=== PATIENT | female | born 1965 | race Caucasian/White ===

== ENCOUNTER → 2020-11-02 | Outpatient (CLI) | payer BC | LOC: M LABSMTC 10:46 | PROVIDERS: ATTEND Family Medicine | DX: Z11.52 Encounter for screening for COVID-19 (principal) ==

== ENCOUNTER → 2025-02-26 | Outpatient (REF) | payer OTHER, BC ==
[2025-02-26 18:24] LABS: PLATELET COUNT, AUTOMATED 323 10^3/uL (150-450)
== END ==
LOC: M LABDRWCV 17:49
PROVIDERS: ATTEND Family Medicine
DX: D72.819 Decreased white blood cell count, unspecified (principal)

== ENCOUNTER → 2025-03-19 | Outpatient (REF) | payer OTHER, BC ==
[2025-03-19 18:31] LABS: CHOLESTEROL LEVEL 255.0 MG/DL (<200); CHOLESTEROL RISK RATIO 3.08 (<5); LDL CHOLESTEROL 150.4 MG/DL (<100); NON-HDL-C 172.4 MG/DL; TRIGLYCERIDES LEVEL 110.0 MG/DL (<150)
== END ==
LOC: M LABDRWCV 17:24
PROVIDERS: ATTEND Family Medicine
DX: E03.9 Hypothyroidism, unspecified (principal)

== ENCOUNTER → 2025-07-09 | Outpatient (REF) | payer BC ==
[2025-07-09 18:13] LABS: ALT/SGPT 37 U/L (7.0-40); AST/SGOT 14 U/L (<34); CALCIUM LEVEL 9.5 MG/DL (8.3-10.6); CARBON DIOXIDE LEVEL 28 MMOL/L (20-31); CHLORIDE LEVEL 100 MMOL/L (98-107); CREATININE FOR GFR 0.66 MG/DL (0.55-1.30); FREE T4 1.69 NG/DL (0.89-1.76); GLOMERULAR FILTRATION RATE > 90.0 (>45); POTASSIUM SERUM 4.5 MMOL/L (3.5-5.1); PTH INTACT 41.8 PG/ML (18.5-88.0); SODIUM LEVEL 136 MMOL/L (136-145); VITAMIN B12 LEVEL 895 PG/ML (211-911)
[2025-07-09 18:15] LABS: TOTAL 25(OH) VITAMIN D 58.8 NG/ML (20.0-100.0)
== END ==
LOC: M SFHCCAPE 08:13
PROVIDERS: ATTEND Nurse Practitioner Family
DX: I10 Essential (primary) hypertension (principal); E03.9 Hypothyroidism, unspecified; E55.9 Vitamin D deficiency, unspecified; E53.8 Deficiency of other specified B group vitamins